=== PATIENT | female | born 1950 | race Caucasian/White ===

== ENCOUNTER 2019-01-22 00:13 | Emergency (ER) | payer OTHER | END 2019-01-22 00:33 | disposition home or self-care (01) | LOC: FER 00:13 ==

== ENCOUNTER 2020-10-23 21:37 | Emergency (ER) | payer OTHER ==
[2020-10-23 21:49] VITALS: BP 166/99; PULSE 103; TEMP 98.4; BMI 23.8
[2020-10-23] MEDS ORDERED: AMOX TR/POT CLAV 500MG/125MG TABLETS (FP) PO ONE (23:19)
[2020-10-23] MEDS ORDERED: AMOX TR/POT CLAV 500MG/125MG TABLETS (FP) ONE (23:25)
== END 2020-10-23 23:29 | disposition home or self-care (01) ==
LOC: FER 21:37
DX: S02.2XXA Fracture of nasal bones, initial encounter for closed fracture (principal); S00.83XA Contusion of other part of head, initial encounter; S00.81XA Abrasion of other part of head, initial encounter
CPT/HCPCS: 70450-TC; 70486-TC; 73560-TC-LT-FY; 99285-25

== ENCOUNTER 2023-12-07 11:09 | Day surgery (SDC) | payer OTHER ==
[2023-12-05 11:43] VITALS: BMI 22.0
[~2023-12-07 11:09] MED LIST: BUPIVACAINE HCL/PF 0.25% (2.5MG/ML) 10 ML VIAL ONE; CEFAZOLIN 1 GM in DEXTROSE 5%-WATER - 50 ML IVPB ONE; DEXAMETHASONE SOD PHOSPHATE 4 MG/1 ML VIAL ONE; LIDOCAINE HCL 2% (20ML MULTI-DOSE VIAL) ONE
[2023-12-07] MEDS ORDERED: BUPIVACAINE HCL/PF 0.5% (5MG/ML) 10 ML VIAL ONE (11:45)
[2023-12-07] MEDS ORDERED: BUPIVACAINE HCL/PF 0.25% (2.5MG/ML) 10 ML VIAL ONE ×2 (11:45→13:28)
[2023-12-07] MEDS ORDERED: PROPOFOL 40 ML ONE (12:16)
[2023-12-07] MEDS ORDERED: MIDAZOLAM HCL 2 MG/2 ML SINGLE DOSE VIAL ONE (12:22)
[2023-12-07] MEDS: LIDOCAINE HCL 2% (50ML VIAL) NR ONE (12:48)
[2023-12-07] MEDS ORDERED: DEXAMETHASONE SOD PHOSPHATE 4 MG/1 ML VIAL ONE (13:28)
[2023-12-07] MEDS ORDERED: LIDOCAINE HCL/EPINEPHRINE/PF 20 ML VIAL ONE (13:28)
[2023-12-07] MEDS: BUPIVACAINE HCL/PF 0.25% (2.5MG/ML) 10 ML VIAL IJ ONE ×2 (14:27→14:28)
[2023-12-07] MEDS: DEXAMETHASONE SOD PHOSPHATE 4 MG/1 ML VIAL IVPUSH ONE ×2 (14:27→14:28)
[2023-12-07 14:58] VITALS: RESP 18; TEMP 98
[2023-12-07 15:43] VITALS: BP 112/66; PULSE 76
== END 2023-12-07 15:45 | disposition home or self-care (01) ==
LOC: FASU 11:09
PROVIDERS: ATTEND Podiatrist
PROC: 0SRQ0JZ Replacement of Left Toe Phalangeal Joint with Synthetic Substitute, Open Approach (ICD-10-PCS; 2023-12-07)
PROC: 0QSR04Z Reposition Left Toe Phalanx with Internal Fixation Device, Open Approach (ICD-10-PCS; principal; 2023-12-07 13:08)
DX: M20.12 Hallux valgus (acquired), left foot (principal); M19.072 Primary osteoarthritis, left ankle and foot; M20.42 Other hammer toe(s) (acquired), left foot
CPT/HCPCS: 73630-TC-LT; 88304-TC; 88311-TC; 93005; 93010